=== PATIENT | female | born 1980 | race Caucasian/White ===

== ENCOUNTER 2020-12-10 03:08 | Outpatient (CLI) | payer MEDICAID, SELFPAY ==
[2020-12-10 12:53] LABS: HCT 38.1 % (36.0-46.0); HGB 12.5 g/dL (11.2-15.7); MCH 26.3 pg (27.0-33.0); MCHC 32.8 % (32.0-36.0); MPV 9.5 fL (8.0-11.0); Platelet Count 454 10^3/uL (130-400); RBC 4.76 10^6/uL (3.93-5.22); RDW 16.9 % (11.7-14.6); RDW-SD 49.4 fL
[2020-12-10 13:48] LABS: Anion Gap 16.3 mmol/L (3-11); BUN 9 mg/dL (7-18); CO2 20.7 mmol/L (21.0-32.0); CREATININE 0.7 mg/dL (0.55-1.02); Calcium 9.6 mg/dL (8.5-10.1); Chloride 103 mmol/L (98-107); Glucose 101 mg/dL (74-106); Potassium 4.4 mmol/L (3.5-5.1); Sodium 140 mmol/L (136-145)
[2020-12-10 17:18] LABS: ESR 52 mm/hr (<or=20)
== END 2020-12-10 03:09 | disposition home or self-care (01) ==
LOC: LBO 03:08
PROVIDERS: PCP Nurse Practitioner; Visit Provider Nurse Practitioner Family
DX: R19.7 Diarrhea, unspecified (principal)
CPT/HCPCS: 36415; 80048; 85027; 85652

== ENCOUNTER 2021-05-23 09:33 | Emergency (ER) | payer MEDICAID, SELFPAY ==
[2021-05-23 10:10] VITALS: BP 140/106; PULSE 101; RESP 20; TEMP 36.3; O2SAT 96
[2021-05-23 10:20] LABS: Bilirubin Negative (Negative); Blood Moderate (Negative); Clarity Clear (Clear); Glucose Negative (Negative); Ketones Negative (Negative); Leukocyte Esterase Negative (Negative); Nitrite Negative (Negative); Specific Gravity >= 1.030 (1.005-1.025); Urobilinogen 0.2 EU/dL (Up TO 0.2); pH 5.5 (5-8)
--- NOTE | 2021-05-23 10:23 | ED.GENADUL_ITS ---
Discharge Plan Disposition Patient Disposition: HOME Condition: Improving Discharge Details Clinical Impression: Spasm of lumbar paraspinous muscle Primary Care Provider: Yamilex Gonzalez ED Provider: Leroy Clarke Home Meds and New Rx's Prescriptions: New diazepam [Valium] 5 mg tablet 5 mg PO BID PRN (Reason: muscle spasm) Qty: 7 RF: 0 Discontinued hydrocodone-acetaminophen [Vicodin] 1 EACH tablet 1 tab PO DIRECTED RF: 0 amoxicillin 500 MG capsule 500 mg PO QID RF: 0 oxycodone-acetaminophen 1 TAB tablet 1 tab PO Q6H PRN PRNQty: 10 RF: 0 clindamycin HCl 300 MG capsule 300 mg PO QID Qty: 28 RF: 0 ondansetron 4 MG tablet,disintegrating 4 mg PO Q6H PRN PRNQty: 7 RF: 0 Discharge Instructions Instructions: Muscle Spasm (ED) Additional Instructions: Liberally hydrate with small, frequent sips of fluids. May perform gentle massage with foam roller to area. Please follow-up with physical therapy. May use the prescribed Valium as needed for muscle pain and spasm. No alcohol, driving, or other sedating medications with this prescription. Return to the emergency room for any acute concerns. Stand Alone Forms: Physical Therapy Referral Medical Decision Making 40-year-old female with left low back pain and spasms for 2 weeks. She has reproducible pain and muscular spasm on exam. Screening urinalysis obtained to rule out hematuria or infection. Lidoderm patch placed, patient given anti-inflammatory with intramuscular ketorolac. I do feel she will benefit from outpatient course of strong muscle relaxant and will prescribe Valium as well as follow-up with physical therapy. Urinalysis dip showed hematuria, but no evidence of microscopic red blood cells. She is somewhat dehydrated with elevated specific gravity. She will hydrate at home, use muscle relaxants and follow-up with physical therapy. Return for any other acute concerns. HPI General Mode of arrival: ambulatory . Date/Time Provider Initiated Documentation: 05/23/21 10:14 . Limitations to Documentation: no limitations . Information obtained by: patient . History of Present Illness 40 year old F presents to the emergency department with the chief complaint of Left low back pain and spasm, described as moderate and severe, Quality is described as dull and constant, and is localized to the back and left. Patient started experiencing this day(s) and it has been constant. Rest improves symptom(s), Movement worsens symptoms . Patient notes denies fever/chills, rash, syncope and weakness. Patient did receive the following treatments prior to arrival, NSAID Related Data Home Medications Medication Instructions Recorded Confirmed diazepam [Valium] 5 mg PO BID PRN #7 tab 05/23/21 Previous Rx's Medication Instructions Recorded diazepam [Valium] 5 mg PO BID PRN #7 tab 05/23/21 Allergies Allergy/AdvReac Type Severity Reaction Status Date / Time No Known Drug Allergies Allergy Unverified 09/21/16 14:29 General Stated Complaint: Nk/Back Pain LAVERNE: 3 Review of Systems Narrative: No change to bowel or bladder habits. No motor weakness. No change to gait. Urinating normally. No fever or chills. Had uneventful menses last week. No traumatic injury. 8 systems reviewed and otherwise negative. [facility] Medical History liver polyp 09/2013 - incidental finding noted at time of u/s for RUQ pain. Social History Smoking/Tobacco Use Status: Former Tobacco Use Smoking risk assessment performed?: Yes Drug use: Never Do you feel safe in your relationship?: Yes Exam Narrative Exam Narrative: GEN: awake, alert, oriented 3. Pleasant, well groomed, interactive. HEAD: Normocephalic, atraumatic EYES: PERRL, EOMI NECK: Full ROM, no RADHA, no menigismus CHEST/RESP: Nontender, clear to auscultation bilateral, no wheeze/rhonchi/rales CARDIOVASCULAR: RRR, no murmur, rub mak. 2+ Rad pulse bilateral Back: Left paraspinous lumbar and SI joint tenderness with muscle spasm present. No sciatic notch tenderness. ABDOMEN: Soft, nontender, no mass. +Bowel sounds EXT: Full ROM, no edema, no rash. Normal sensation including saddle distribution. Motor graded 5 out of 5. Neuro: Grossly normal neurologic exam, conversant, interactive. Psych: Speech fluent, thoughts congruent, affect normal Course Vital Signs Vital signs: Vital Signs Temperature 36.3 C L 05/23/21 10:10 Pulse 101 H 05/23/21 10:10 Respiratory Rate 20 05/23/21 10:10 Blood Pressure 140/106 H 05/23/21 10:10 Pulse Oximetry 96 05/23/21 10:10 Temperature 36.3 C L 05/23/21 10:10 Temperature Source Skin 05/23/21 10:10 Pulse 101 H 05/23/21 10:10 Respiratory Rate 20 05/23/21 10:10 Blood Pressure 140/106 H 05/23/21 10:10 Blood Pressure Position Sitting 05/23/21 10:10 Pulse Oximetry 96 05/23/21 10:10 Oxygen Delivery Method Room Air 05/23/21 10:10 Oxygen Flow Rate 0 05/23/21 10:10 Pain Level 10 05/23/21 10:10
[2021-05-23 10:29] LABS: Bacteria Moderate HPF (Negative); C & S Indicated? No/Sq. Contamination; Casts Negative LPF (Negative); Crystals Negative HPF (Negative); Epithelial Cells Many HPF (Negative); Mucus Moderate (Negative); RBC 0-2 HPF (0-2); WBC 0-2 HPF (0-5)
[2021-05-23] MEDS: Lidocaine 5% Patch 1 PATCH TP (10:31)
[2021-05-23] MEDS: Ketorolac 30 MG/ML VIAL IM (10:32)
[2021-05-23 10:41] VITALS: BP 123/88; PULSE 78; RESP 16
== END 2021-05-23 10:43 | disposition home or self-care (01) ==
PROVIDERS: Emergency Provider Emergency Medicine; PCP Nurse Practitioner
DX: M54.89 Other dorsalgia (principal); M62.830 Muscle spasm of back; R31.9 Hematuria, unspecified; E86.0 Dehydration
CPT/HCPCS: 96372; 99284; 81003; 81015; J1885

== ENCOUNTER 2021-12-17 19:10 | Outpatient (REF) | payer MEDICAID, SELFPAY ==
[2021-12-17 20:42] LABS: Abs Immature Grans 0.04 10^3/uL (0.0-0.06); Absolute Basophil Count 0.06 10^3/uL (0.0-0.2); Absolute Eosinophil Count 0.28 10^3/uL (0.0-0.7); Absolute Monocyte Count 0.67 10^3/uL (0.1-0.8); Absolute Neutrophil Count 7.53 10^3/uL (1.2-6.7); Basophils % 0.5; Eosinophils % 2.3; HCT 40.3 % (36.0-46.0); Immature Grans % 0.3; Lymphocytes % 30.7; MCH 27.5 pg (27.0-33.0); MCHC 32.3 % (32.0-36.0); MCV 85.4 fL (80-95); Monocytes % 5.4; Neutrophils % 60.8; Nucleated RBC 0 %; Platelet Count 374 10^3/uL (130-400); RBC 4.72 10^6/uL (3.93-5.22); RDW 14.3 % (11.7-14.6); RDW-SD 44.4 fL; WBC 12.38 10^3/uL (4.4-10.8)
[2021-12-17 20:54] LABS: ALT 30 U/L (14-59); AST 15 U/L (15-37); Albumin 4.2 g/dL (3.4-5.0); Alkaline Phosphatase 108 U/L (46-116); Anion Gap 13.7 mmol/L (3-11); BUN 10 mg/dL (7-18); Bilirubin, Total 0.2 mg/dL (0.2-1.0); CO2 22.3 mmol/L (21.0-32.0); CREATININE 0.7 mg/dL (0.55-1.02); Calcium 9.4 mg/dL (8.5-10.1); Chloride 102 mmol/L (98-107); Glucose 86 mg/dL (74-106); Potassium 3.9 mmol/L (3.5-5.1); Sodium 138 mmol/L (136-145); TSH 3.64 uIU/mL (0.36-3.74); Total Protein 7.9 g/dL (6.4-8.2)
== END 2021-12-17 19:11 | disposition home or self-care (01) ==
LOC: NCHCN 19:10
PROVIDERS: PCP Nurse Practitioner; Visit Provider Nurse Practitioner Family
DX: R53.83 Other fatigue (principal); G47.9 Sleep disorder, unspecified; M54.59 Other low back pain; G89.29 Other chronic pain
CPT/HCPCS: 80053; 84443; 85025

== ENCOUNTER 2022-05-12 12:09 | Outpatient (REF) | payer MEDICAID, SELFPAY ==
--- NOTE | 2022-05-12 10:45 | PAPFT_PTH ---
PATIENT: Akilah Victoria LOC: [facility] U#:[id number] AGE/SX: 41/F ROOM: RE05/12/[address]: Sariah Navarro NP : 1980 BED: DIS: 05/12/2022 SPEC #: [id number] RECD: 05/12/22 13:02 STATUS: JOSE ORTEAG #: [id number] VIVI: 05/12/22 10:[address]: Sariah Navarro NP DEPT: [facility] Cytology RECD BY: Nohelia Payan ENTERED: 05/12/22 13:02 SP TYPE: PAPFT OTHR DR: Yamilex Gonzalez Tissues: 1 - CX/ENDOCX FOR PAP SMEARS Procedures: PAP THIN PREP/UVM Screening HPV DNA PROBE Comments: [id number]
== END 2022-05-12 12:10 | disposition home or self-care (01) ==
LOC: LBN 12:09
PROVIDERS: PCP Nurse Practitioner; Visit Provider Nurse Practitioner Women's Health
DX: Z12.4 Encounter for screening for malignant neoplasm of cervix (principal); Z11.51 Encounter for screening for human papillomavirus (HPV)
CPT/HCPCS: 88142; 87624

== ENCOUNTER 2022-07-13 12:32 | Emergency (ER) | payer MEDICAID, SELFPAY ==
[2022-07-13 12:39] VITALS: BP 119/71; PULSE 108; RESP 18; TEMP 36.6; O2SAT 95
--- NOTE | 2022-07-13 12:59 | ED.GENADUL_ITS ---
Discharge Plan Disposition Patient Disposition: HOME Condition: Stable Discharge Details Clinical Impression: Acute bronchitis Primary Care Provider: MARIN HOLLIS ED Provider: Asuncion Dash Home Meds and New Rx's Prescriptions: New albuterol sulfate 90 mcg/actuation HFA aerosol inhaler 2 puff inhalation Q6H PRN (Reason: shortness of breath or wheezing) Qty: 8.5 0RF doxycycline hyclate 100 mg tablet 100 mg PO BID 7 Days Qty: 14 0RF benzonatate 100 mg capsule 100 mg PO TID PRN (Reason: cough) Qty: 14 0RF prednisone 20 mg tablet See Rx Instructions .ROUTE .COMPLEX Qty: 18 0RF Rx Instructions: Take 3 tabs daily for 3 days, then 2 tabs daily for 3 days, then 1 tab daily for 3 days. Continued melatonin 5 mg capsule 5 mg PO HS PRN (Reason: HS) cholestyramine (with sugar) 4 gram powder in packet 1 packet PO DAILY Label Comments: TAKE ONE PACKET BY MOUTH TWICE A DAY Discharge Instructions Instructions: Acute Bronchitis (ED) Additional Instructions: Your covid and influenza tests today were negative. Your chest xray showed no evidence of acute disease. It is suspected your symptoms are secondary to bronchitis which is a viral respiratory infection. There is a risk of evolving into a bacterial infection with a history of smoking. Prescriptions for an inhaler, cough medication, steroids and antibiotics have been sent electronically to your pharmacy. Drink plenty of fluids and get plenty of rest. Follow-up with your primary care doctor in 1 week. Return to the emergency department with any worsening or new concerning symptoms. Discharge Data Discharge Physician: Asuncion Dash Medical Decision Making 41-year-old female who is a daily smoker presents for flulike symptoms with fever, body aches, chills, sore throat, cough and shortness of breath for the past 4 days. Her heart rate was elevated to 108 on arrival. Heart rate decreased to 90s upon my assessment. Her oxygen saturation is 98% on room air. She is afebrile. She has diffuse wheezing throughout. Normal ENT exam. No meningeal signs. Differential diagnosis includes influenza, COVID, bronchitis, pneumonia. History of presentation does not appear consistent with ACS or PE. Will obtain a fluvid swab and cxr, and give DuoNeb, steroids, Motrin and reassess. Fluvid negative. CXR negative. Patient reassessed and she feels much better. Breath sounds improved throughout and no wheezing noted. Oxygen saturation 95%. Patient feels comfortable going home. Will treat for suspected bronchitis. Will give antibiotics as she is an active smoker. Advised to follow up with the primary care doctor for re-evaluation. Usual and customary return precautions given prior to discharge. Medical Records Medical records reviewed: Yes I reviewed the patient's medical records. Imaging Data Radiologic Study: Radiologist's impression: ?XR PORTABLE CHEST AP CLINICAL HISTORY: ? cough, fever, sob, r/o pneumonia.? TECHNIQUE:? 2D digital imaging was performed. COMPARISON:? CR CHEST 2 VIEWS PA,LAT from 01/28/2012 FINDINGS: LUNGS: Clear. No pleural abnormality seen. HEART: Normal. MEDIASTINUM: Normal. OTHER FINDINGS: None. IMPRESSION: No acute pulmonary findings. HPI General Mode of arrival: ambulatory . Date/Time Provider Initiated Documentation: 07/13/22 12:42 . Limitations to Documentation: no limitations . Information obtained by: patient . HPI Narrative: Patient is a 41-year-old female who is a daily tobacco smoker presents for flulike symptoms for the past 4 days. Patient states her symptoms started with a tickle 4 days ago and then progressed to worsening cough, shortness of breath, body aches, fatigue and fevers. She states she had a temp of 101.62 days ago. She states the cough is keeping her up at night and she is having difficulty sleeping. She states she took Excedrin this morning without relief. She states she mainly has sore throat and shortness of breath that occurs with coughing. She states she is vaccinated for COVID and has received a booster and denies any known exposure to COVID. Related Data Home Medications Medication Instructions Recorded Confirmed cholestyramine (with sugar) 4 gram 1 packet PO DAILY 05/23/21 07/13/22 powder for susp in a packet melatonin 5 mg capsule 5 mg PO HS PRN HS 05/12/22 07/13/22 albuterol sulfate 90 mcg/actuation 2 puff inhalation Q6H PRN 07/13/22 aerosol inhaler shortness of breath or wheezing #8.5 grams benzonatate 100 mg capsule 100 mg PO TID PRN cough #14 caps 07/13/22 doxycycline hyclate 100 mg tablet 100 mg PO BID 7 days #14 tabs 07/13/22 prednisone 20 mg tablet See Rx Instructions .Route 07/13/22 .COMPLEX #18 tabs Previous Rx's Medication Instructions Recorded albuterol sulfate 90 mcg/actuation 2 puff inhalation Q6H PRN 07/13/22 aerosol inhaler shortness of breath or wheezing #8.5 grams benzonatate 100 mg capsule 100 mg PO TID PRN cough #14 caps 07/13/22 doxycycline hyclate 100 mg tablet 100 mg PO BID 7 days #14 tabs 07/13/22 prednisone 20 mg tablet See Rx Instructions .Route 07/13/22 .COMPLEX #18 tabs Allergies Allergy/AdvReac Type Severity Reaction Status Date / Time No Known Drug Allergies Allergy Unverified 07/13/22 12:45 General Stated Complaint: RespSymp LAVERNE: 4 Review of Systems All systems reviewed & are unremarkable except as noted in HPI and below Constitutional Constitutional: Reports as per HPI, Reports body ache(s), Denies chills and Reports fever(s) Eyes Eyes: Denies blurry vision ENT Ears, Nose, Mouth, and Throat: Denies dizziness, Reports sore throat (mainly with coughing) and Denies throat swelling Cardiovascular Cardiovascular: Denies chest pain and Reports dyspnea Respiratory Respiratory: Reports cough and Reports dyspnea Gastrointestinal Gastrointestinal: Denies abdominal pain, Denies diarrhea and Denies vomiting Genitourinary Genitourinary: Denies hematuria and Denies dysuria Musculoskeletal Musculoskeletal: Denies back pain and Denies numbness Integumentary/Breasts Skin/Breast: Denies lesions and Denies rash Neurologic Neurologic: Denies dizziness, Denies localized weakness and Denies numbness Allergic/Immunologic Allergic/Immunologic: Denies throat swelling PFSH All Active Problems (Updated 07/13/22 @ 13:45 by Asuncion Dash DO) Acute bronchitis (Acute) Medical History (Updated 07/13/22 @ 13:45 by Asuncion Dash DO) Chronic diarrhea Surgical History (Updated 05/12/22 @ 10:30 by Sariah Navarro NP) H/O tubal ligation (~12/2014) Family History (Updated 05/12/22 @ 11:00 by Sariah Navarro NP) Son Autoimmune disease Paternal Grandfather Hypertension Diabetes Heart disease Social History (Updated 05/12/22 @ 11:06 by Sariah Navarro NP) Smoking/Tobacco Use Status: Former Tobacco Use Smoking risk assessment performed?: Yes Alcohol Intake: never Drug use: Never Substance use type: does not use Number of Children: 4 Sexually active: No (not currently) Do you think of yourself as: straight/heterosexual Do you feel safe at home: Yes Do you feel safe in your relationship?: Yes Female Reproductive History Menstrual control method: permanent sterilization History History 5 Para 4 Hx # Term Pregnancies 4 Multiple births Hx # Pregnancies Ectopic pregnancies AB induced Hx Number of Living Children AB spontaneous 1 Exam Const General: cooperative and no acute distress Orientation: alert, awake and oriented x3 HENMT Head: normal to inspection Ears: hearing grossly normal bilaterally, external ears normal and TM's normal bilaterally General nose exam: external nose normal Face and sinus: normal facial exam and no sinus tenderness Mouth: oral mucosae normal Throat: posterior oropharynx normal Eyes General: appearance normal, both eyes and all related structures Neck Neck: normal visual inspection Resp Effort & Inspection: normal respiratory effort and able to speak in complete sentences Auscultation: wheezes expiratory wheezes and inspiratory wheezes Cardio Rate: tachycardic Rhythm: regular rhythm GI Palpation: soft, not firm, no guarding, not rigid and nontender Skin General skin exam: no rashes or lesions noted Neuro General: patient alert, patient awake and patient oriented x3 Motor: muscle tone normal throughout Extrem General: normal to inspection and full ROM Psych Appearance: grossly normal Affect: normal affect Course Vital Signs Vital signs: Vital Signs Temperature 97.9 F 07/13/22 12:39 Pulse 108 H 07/13/22 12:39 Respiratory Rate 18 07/13/22 12:39 Blood Pressure 119/71 07/13/22 12:39 Pulse Oximetry 95 07/13/22 12:39 Temperature 97.9 F 07/13/22 12:39 Temperature Source Temporal Artery Scan 07/13/22 12:39 Pulse 108 H 07/13/22 12:39 Respiratory Rate 18 07/13/22 12:39 Respiratory Effort Short of Breath 07/13/22 12:43 Respiratory Depth Normal 07/13/22 12:43 Blood Pressure 119/71 07/13/22 12:39 Blood Pressure Position Sitting 07/13/22 12:39 Pulse Oximetry 95 07/13/22 12:39 Oxygen Delivery Method Room Air 07/13/22 12:39 Oxygen Flow Rate 0 07/13/22 12:39 Pain Level 5 07/13/22 12:39
--- NOTE | 2022-07-13 13:14 | DI.RAD_ITS ---
Exam(s) XR PORTABLE CHEST AP EXAM: XR PORTABLE CHEST AP CLINICAL HISTORY: cough, fever, sob, r/o pneumonia. TECHNIQUE: 2D digital imaging was performed. COMPARISON: CR CHEST 2 VIEWS PA,LAT from 01/28/2012 FINDINGS: LUNGS: Clear. No pleural abnormality seen. HEART: Normal. MEDIASTINUM: Normal. OTHER FINDINGS: None. IMPRESSION: No acute pulmonary findings. DATA REPOSITORY: RADIATION DOSE DELIVERED: Total DLP
[2022-07-13 13:20] VITALS: RESP 4
[2022-07-13] MEDS: Ibuprofen 600 MG TAB PO (13:20)
[2022-07-13] MEDS: Albuterol/Ipratropium 3 ML UPD VIAL UPD (13:20)
[2022-07-13] MEDS: predniSONE 20 MG TAB 60 MG PO (13:20)
[2022-07-13 13:47] LABS: COVID-19 PCR Negative (Negative); Influenza A PCR Negative (Negative); Influenza B PCR Negative (Negative); RSV PCR Negative (Negative)
[2022-07-13] MEDS: Inhaler, Assist Device 1 EACH MC (14:06)
== END 2022-07-13 14:07 | disposition home or self-care (01) ==
PROVIDERS: Emergency Provider Physician Assistant; PCP Nurse Practitioner Family
DX: J20.9 Acute bronchitis, unspecified (principal); F17.200 Nicotine dependence, unspecified, uncomplicated; Z20.822 Contact with and (suspected) exposure to COVID-19
CPT/HCPCS: 87637; 99283; 71045; 99284; J7512; J7620

== ENCOUNTER 2024-03-12 07:14 | Emergency (ER) | payer MEDICAID, SELFPAY ==
[2024-03-12 07:16] VITALS: BP 160/79; PULSE 120; RESP 20; TEMP 37.1; O2SAT 97
[2024-03-12 07:47] VITALS: BP 146/87; PULSE 111; RESP 18; O2SAT 98
--- NOTE | 2024-03-12 07:53 | W.ED.GENAD ---
Discharge Plan Disposition Patient Disposition: Home Condition: Stable Discharge Details Clinical Impression: Low back pain Primary Care Provider: MARIN HOLLIS ED Provider: Deshwan Rudolph Home Meds and New Rx's Prescriptions: Continued melatonin 5 mg capsule 5 mg PO HS PRN (Reason: HS) cholestyramine (with sugar) 4 gram powder in packet 1 packet PO DAILY Patient Comments: TAKE ONE PACKET BY MOUTH TWICE A DAY Discharge Instructions Instructions: Acute Low Back Pain (ED) Additional Instructions: Please take ibuprofen over the counter. Take 600mg by mouth every 6 hours as needed for pain. Please take acetaminophen (tylenol) - 650mg every 6 hours by mouth as needed for pain. You can start these medications in 6 to 8 hours. Use lidocaine patches. These are available [id number]. Dose according to label. Avoid activities that worsen pain. Please contact your primary care physician to arrange follow-up. Return to the ER immediately for any worsening or new concerning symptoms. Referrals: MARIN HOLLIS, RIGGER HELPER [Primary Care Provider] - HPI General Mode of arrival: ambulatory. Date/Time Provider Initiated Documentation: 03/12/24 07:14. Limitations to Documentation: no limitations. Information obtained by: patient. HPI Narrative: 43-year-old female presents with chief complaint of back pain. Patient notes back pain that started yesterday. She states it started while she was moving from a sitting to standing position. No direct trauma or recent traumatic event. Pain is severe and constant and worse with attempted ambulation, bending or twisting. Pain localized to left low back. No associated fever. No associated paresthesias or weakness. No bowel or bladder dysfunction. Patient states she has had similar severe pain in the past. She was seen here in the emergency department sometime ago for an acute episode and followed up with physical therapy which she states did not provide much relief. Pain eventually subsided and resolved. She has been pain-free for months. Related Data Home Medications Medication Instructions Recorded Confirmed cholestyramine (with sugar) 4 gram 1 packet PO DAILY 05/23/21 03/12/24 powder for susp in a packet melatonin 5 mg capsule 5 mg PO HS PRN HS 05/12/22 03/12/24 Allergies Allergy/AdvReac Type Severity Reaction Status Date / Time No Known Allergies Allergy Unverified 03/12/24 07:19 General Stated Complaint: Nk/Back Pain LAVERNE: 3 Review of Systems All systems reviewed & are unremarkable except as noted in HPI and below Constitutional Constitutional: Denies fever(s) Integumentary/Breasts Skin/Breast: Denies rash Exam Const General: cooperative and no acute distress HENMT Mouth: moist mucous membranes Eyes Conjunctivae: normal conjunctivae Sclera: normal sclerae Resp Auscultation: clear to auscultation bilaterally, no rales, no rhonchi and no wheezes Cardio Rate: regular rate and not tachycardic Rhythm: regular rhythm GI Palpation: soft, not firm, no guarding, no masses, not rigid and nontender Back/Spine/Pelvis Cervical Spine: cervical ROM normal and No cervical spinal tenderness Thoracic/Lumbar Spine: paraspinal tenderness (lt lumbar), No thoracic spinal tenderness and lumbar spinal tenderness Sacroiliac joints: on the left tender to palpation Sacrum: no ecchymosis, no erythema and no swelling Skin General skin exam: no rashes or lesions noted Neuro General: patient alert, patient awake, patient oriented x3 and tone normal Extrem General: no edema Psych Appearance: grossly normal Mental Status: mental status grossly normal Course Vital Signs Vital signs: Vital Signs Temperature 37.1 C 03/12/24 07:16 Pulse 120 H 03/12/24 07:16 Respiratory Rate 20 03/12/24 07:16 Blood Pressure 160/79 H 03/12/24 07:16 Pulse Oximetry 97 03/12/24 07:16 Temperature 37.1 C 03/12/24 07:16 Temperature Source Temporal Artery Scan 03/12/24 07:16 Pulse 111 H 03/12/24 07:47 Respiratory Rate 18 03/12/24 07:47 Respiratory Effort Normal, Non-Labored 03/12/24 07:20 Blood Pressure 146/87 H 03/12/24 07:47 Blood Pressure Position Sitting 03/12/24 07:16 Pulse Oximetry 98 03/12/24 07:47 Oxygen Delivery Method Room Air 03/12/24 07:47 Oxygen Flow Rate 0 03/12/24 07:47 Medical Decision Making 827?- 43-year-old female with history of lumbar sacral pain in the past, here with acute severe lumbar sacral back pain that started yesterday while moving from a seated to standing position. Patient has focal tenderness over lumbar spine and left lumbar paraspinal area as well as SI joint on the left. Patient is neurologically intact bilateral lower extremities. Plan to initiate treatment with Toradol IV and lidocaine patch. Patient took acetaminophen this morning. 1008 -- X-ray of the lumbar spine interpreted by radiology:IMPRESSION: Mild degenerative disease at L4-L5. No spondylolisthesis. X-ray of the sacrum interpreted by radiology: IMPRESSION: No acute fracture or dislocation. Patient reassessed and feeling better. Vital signs improved. Plan for discharge with outpatient follow-up with PCP. Usual and customary discharge instructions were reviewed. Labs reviewed: Mild hematuria noted. Patient completing menses. Lab Data Lab results reviewed: Yes I reviewed the patient's lab results. Labs: Laboratory Tests Range/Units 03/12/24 03/12/24 03/12/24 08:09 08:30 09:36 WBC Cancelled 8.82 RBC Cancelled 4.60 Hgb Cancelled 12.4 Hct Cancelled 38.6 MCV Cancelled 84 MCH Cancelled 27.0 MCHC Cancelled 32.1 RDW Cancelled 13.5 Plt Count Cancelled 451 H MPV Cancelled 9.2 Immature Gran % Cancelled 0.5 Neutrophils % Cancelled 65.6 Band Neutrophils % Cancelled Lymphocytes % Cancelled 27.2 Atypical Lymphs % Cancelled Monocytes % Cancelled 4.2 Eosinophils % Cancelled 2.0 Basophils % Cancelled 0.5 Metamyelocytes % Cancelled Myelocytes % Cancelled Promyelocytes % Cancelled Other Cells % Cancelled Nucleated RBC % Cancelled 0.0 Absolute Neutrophils Cancelled 5.79 Absolute Lymphocytes Cancelled 2.40 Absolute Monocytes Cancelled 0.37 Absolute Eosinophils Cancelled 0.18 Absolute Basophils Cancelled 0.04 RBC Morphology Cancelled Polychromasia Cancelled Hypochromasia Cancelled Poikilocytosis Cancelled Basophilic Stippling Cancelled Anisocytosis Cancelled Microcytosis Cancelled Macrocytosis Cancelled Spherocytes Cancelled Tear Drop Cells Cancelled Ovalocytes Cancelled Stomatocytes Cancelled [place] Bodies Cancelled [place] Cells/Echinocytes Cancelled Acanthocytes (Spur) Cancelled Schistocytes Cancelled Sodium Cancelled 140 Potassium Cancelled 3.7 Chloride Cancelled 103 Carbon Dioxide Cancelled 25.1 Anion Gap Cancelled 11.9 H BUN Cancelled 6 L Creatinine Cancelled 0.9 Est GFR (CKD-EPI 2020) Cancelled 82.37 Glucose Cancelled 111 H Calcium Cancelled 8.8 Magnesium Cancelled 2.2 Total Bilirubin Cancelled 0.3 AST Cancelled 14 L ALT Cancelled 19 Alkaline Phosphatase Cancelled 105 Total Protein Cancelled 8.0 Albumin Cancelled 4.1 Urine Color (Yellow) Yellow Urine Clarity (Clear) Clear Urine pH (5-8) 6.0 Ur Specific [place] (1.005-1.025) <= 1.005 Urine Protein (Neg-Trace) mg/dL Negative Urine Ketones (Negative) mg/dL Negative Urine Blood (Negative) Large H Urine Nitrite (Negative) Negative Urine Bilirubin (Negative) Negative Urine Urobilinogen (Up to 0.2) mg/dL 0.2 Ur Leukocyte Esterase (Negative) Negative Urine RBC (0-2) HPF 5-10 H Urine WBC (0-5) HPF 0-2 Ur Epithelial Cells (Negative) HPF Moderate Urine Crystals (Negative) HPF Negative Urine Bacteria (Negative) HPF Rare Urine Casts (Negative) LPF Negative Urine Mucus (Negative) Negative Ur Culture Indicated? No Urine Glucose (Negative) mg/dL Negative Quality:SDOH Health Related Social Needs: No Data to Display PFSH All Active Problems (Updated 03/12/24 @ 10:20 by Deshawn Rudolph MD) Low back pain (Acute) Medical History Chronic diarrhea Surgical History H/O tubal ligation (~12/2014) Family History Son Autoimmune disease Paternal Grandfather Hypertension Diabetes Heart disease Social History Smoking/Tobacco Use Status: Current every day Tobacco Type: cigarettes Smoking risk assessment performed?: Yes Alcohol Intake: never Drug use: Never Substance use type: does not use Number of Children: 4 Sexually active: No (not currently) Do you think of yourself as: straight/heterosexual Do you feel safe at home: Yes Do you feel safe in your relationship?: Yes Female Reproductive History Menstrual control method: permanent sterilization History History 5 Para 4 Hx # Term Pregnancies 4 Multiple births Hx # Pregnancies Ectopic pregnancies AB induced Hx Number of Living Children AB spontaneous 1
--- NOTE | 2024-03-12 08:00 | DI.RAD_ITS ---
Exam(s) XR LUMBAR SPINE COMPLETE XR SACRUM EXAM: XR LUMBAR SPINE COMPLETE CLINICAL HISTORY: pain, left. TECHNIQUE: 2D digital imaging was performed. Six views. COMPARISON: CR,XR XR SACRUM from 03/12/2024 FINDINGS: BONES: No fracture or destructive lesion. Vertebral body heights are maintained. No facet hypertroph y identified. DISKS: Intervertebral disc spaces are maintained. Joints: Sacroiliac joints and pubic symphysis are intact. Visualized portions of the hip joints are unremarkable. ALIGNMENT: Lumbar spinal alignment is within normal limits. SOFT TISSUE: Normal. IMPRESSION: Unremarkable radiographs of the lumbar spine and sacrum. DATA REPOSITORY: RADIATION DOSE DELIVERED:
[2024-03-12] MEDS: Ketorolac 30 MG/ML VIAL IVP (08:15)
[2024-03-12] MEDS: Lidocaine 5% Patch 1 PATCH TP (08:16)
[2024-03-12] MEDS: Lactated Ringers 500 ML IV (08:34)
[2024-03-12] MEDS: Normal Saline Flush 10 ML SYR IVP (08:34)
[2024-03-12 08:40] LABS: Abs Immature Grans 0.04 10^3/uL (0.0-0.06); Absolute Basophil Count 0.04 10^3/uL (0.0-0.2); Absolute Eosinophil Count 0.18 10^3/uL (0.0-0.7); Absolute Monocyte Count 0.37 10^3/uL (0.1-0.8); Absolute Neutrophil Count 5.79 10^3/uL (1.2-6.7); Basophils % 0.5 %; HCT 38.6 % (36.0-46.0); HGB 12.4 g/dL (11.2-15.7); Immature Grans % 0.5 %; Lymphocytes % 27.2 %; MCHC 32.1 % (32.0-36.0); MCV 84 fL (80-95); MPV 9.2 fL (8.0-11.0); Monocytes % 4.2 %; Neutrophils % 65.6 %; Platelet Count 451 10^3/uL (130-400); RDW 13.5 % (11.7-14.6); RDW-SD 41.6 fL; WBC 8.82 10^3/uL (4.4-10.8)
[2024-03-12 09:00] LABS: ALT 19 U/L (14-59); AST 14 U/L (15-37); Albumin 4.1 g/dL (3.4-5.0); Alkaline Phosphatase 105 U/L (46-116); Anion Gap 11.9 mmol/L (3-11); BUN 6 mg/dL (7-18); Bilirubin, Total 0.3 mg/dL (0.2-1.0); CO2 25.1 mmol/L (21.0-32.0); CREATININE 0.9 mg/dL (0.55-1.02); Calcium 8.8 mg/dL (8.5-10.1); Chloride 103 mmol/L (98-107); Estimated GFR 82.37 (mL/min/1.73m2); Glucose 111 mg/dL (74-106); Magnesium 2.2 mg/dL (1.8-2.4); Potassium 3.7 mmol/L (3.5-5.1); Sodium 140 mmol/L (136-145)
[2024-03-12 09:20] VITALS: BP 127/83; PULSE 85; O2SAT 96
[2024-03-12 09:22] VITALS: BP 127/83; PULSE 91; RESP 18; O2SAT 97
--- NOTE | 2024-03-12 09:27 | DI.VRAD_ITS ---
PROCEDURE INFORMATION: Exam: XR Lumbosacral Spine Exam date and time: 03/12/2024 9:02 AM Age: 43 years old Clinical indication: Low back pain TECHNIQUE: Imaging protocol: Radiologic exam of the lumbosacral spine. Views: 4 or 5 views. COMPARISON: No relevant prior studies available. FINDINGS: Bones/joints: Minimal curvature of the upper lumbar spine convex to the right. Anterior osteophytes of the lower thoracic spine. Mild narrowing of the L4-L5 disc space. No spondylolisthesis. No compression deformity. Soft tissues: Unremarkable. Vasculature: Pelvic phleboliths. 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 No spondylolisthesis. Dictated and Authenticated by: Antelmo Cui MD. Ordering:RAIAN Hess MD
--- NOTE | 2024-03-12 09:28 | DI.VRAD_ITS ---
PROCEDURE INFORMATION: Exam: XR Sacrum and Coccyx, 2 or More Views Exam date and time: 03/12/2024 9:04 AM Age: 43 years old Clinical indication: Pain; Lumbago TECHNIQUE: Imaging protocol: XR of the sacrum and coccyx, 2 or more views. COMPARISON: CR XR LUMBAR SPINE COMPLETE 03/12/2024 9:02 AM FINDINGS: Bones/joints: Normal. No acute fracture. Soft tissues: Normal. Vasculature: Pelvic phleboliths. IMPRESSION: No acute fracture or dislocation. Dictated and Authenticated by: Antelmo Cui MD. Ordering:RAINA Hess MD
[2024-03-12 09:30] VITALS: BP 130/69; PULSE 84; O2SAT 99
[2024-03-12 09:48] LABS: Bilirubin Negative (Negative); Blood Large (Negative); Clarity Clear (Clear); Glucose Negative (Negative); Ketones Negative (Negative); Leukocyte Esterase Negative (Negative); Nitrite Negative (Negative); Specific Gravity <= 1.005 (1.005-1.025); Urobilinogen 0.2 mg/dL (Up to 0.2)
[2024-03-12 09:54] LABS: Bacteria Rare HPF (Negative); C & S Indicated? No; Casts Negative LPF (Negative); Crystals Negative HPF (Negative); Epithelial Cells Moderate HPF (Negative); Mucus Negative (Negative); WBC 0-2 HPF (0-5)
== END 2024-03-12 10:32 | disposition home or self-care (01) ==
LOC: ER 10:33
PROVIDERS: Emergency Provider Student in an Organized Health Care Education/Training Program; PCP Nurse Practitioner Family
DX: M54.50 Low back pain, unspecified (principal)
CPT/HCPCS: 80053; 96361; 96374; 99284; 72110; 72220; 81003; 81015; 83735; 85025; J1885